=== PATIENT | female | born 1945 | race Caucasian/White ===

== ENCOUNTER 2016-08-09 19:49 | Inpatient (IN) | payer OTHER ==
[~2016-08-09] VITALS: Ht 177.8 cm; Wt 60.8 kg
[2016-08-09 20:01] VITALS: BP_SYST 107
[2016-08-09] MEDS ORDERED: NACL 0.9% 1,000 ML IV ONE (20:24)
[2016-08-09 20:52] LABS: BASOPHILS % (AUTO) 0.2 % (0.0-2.0); EOSINOPHILS % (AUTO) 0.1 % (0.0-4.0); HEMATOCRIT 24.2 % (36-48); HEMOGLOBIN 8.2 g/dL (12.0-16.0); LYMPHOCYTES # (AUTO) 0.4 K/uL (1.0-5.5); MEAN CORPUSCULAR HEMOGLOBIN 28 pg (27-31); MEAN CORPUSCULAR HGB CONC 34 % (32-36); MEAN CORPUSCULAR VOLUME 83 fL (79.0-98.0); MONOCYTES # (AUTO) 0.3 K/uL (0.0-1.0); NEUTROPHILS % (AUTO) 88.7 % (40.0-70.0); PLATELET COUNT (AUTO) 491 K/uL (130-430); RED BLOOD CELL COUNT(AUTO) 2.94 MIL/uL (4.2-6.2); RED CELL DISTRIBUTION WIDTH 16.8 % (9.0-15.0); WHITE BLOOD COUNT (AUTO) 6.7 K/uL (4.8-10.8)
[2016-08-09 21:03] LABS: CALCIUM 8.5 mg/dL (8.4-11.0); CREATININE 1.86 mg/dL (0.55-1.30); POTASSIUM 4.4 mmol/L (3.5-5.1)
[2016-08-09 21:18] LABS: THYROID STIMULATING HORMONE 0.58 uIu/mL (0.34-4.82); TOTAL BILIRUBIN 0.2 mg/dL (0.0-1.0); TOTAL PROTEIN, SERUM 6.5 g/dL (6.4-8.3)
[2016-08-10 00:03] LABS: BILIRUBIN,URINE 1+ (NEGATIVE); BLOOD, URINE 3+ (NEGATIVE); CLARITY/URINE CLOUDY (CLEAR); COLOR,URINE BROWN (YELLOW); GLUCOSE,URINE NEGATIVE (NEGATIVE); KETONES,URINE NEGATIVE (NEGATIVE); LEUKOCYTE ESTERASE ,URINE 3+ (NEGATIVE); NITRITE, URINE NEGATIVE (NEGATIVE); PH,URINE 6.5 (5.0-8.0); PROTEIN URINE 2+ (NEGATIVE)
[2016-08-10 00:08] LABS: BACTERIA,URINE MANY /HPF (None Seen); MUCUS,URINE None Seen /LPF (None Seen); RBC,URINE >100 /HPF (0-3); WBC,URINE 50-80 /HPF (0-3)
[2016-08-10] MEDS ORDERED: cefTRIAXone 1 GM IVPB PREMIX 50 ML IV ONE (02:30)
[2016-08-10 03:48] LABS: PROTHROMBIN TIME 10.9 SECS (9.5-12.5)
[2016-08-10 04:23] VITALS: BP_SYST 120
[2016-08-10 04:53] LABS: HEMATOCRIT 25.2 % (36-48); HEMOGLOBIN 8.3 g/dL (12.0-16.0)
[2016-08-10] MEDS: D5NS 1,000 ML IV SCH (05:25)
[2016-08-10] MEDS: PANTOPRAZOLE SODIUM 40 MG/VIAL (PROTONIX) IVP SCH ×2 (08:54→21:28)
[2016-08-10] MEDS: MORPHINE 4 MG/ML INJ. SYRINGE IVP PRN ×2 (08:55→15:23)
[2016-08-10] MEDS ORDERED: IBUP-1480 PO (09:40)
[2016-08-10] MEDS ORDERED: OXYC-133 PO (09:40)
[2016-08-10] MEDS ORDERED: PROC10TA PO (09:40)
[2016-08-10] MEDS ORDERED: [UNRECOGNIZED DRUG - OTHER] IV (09:44)
[2016-08-10] MEDS ORDERED: POLY17PO4 PO (09:55)
[2016-08-10 11:11] LABS: HEMATOCRIT 23.4 % (36-48); HEMOGLOBIN 7.5 g/dL (12.0-16.0)
[2016-08-10 12:00] VITALS: BP_SYST 114
[2016-08-10 12:09] LABS: CALCIUM 8.2 mg/dL (8.4-11.0); CREATININE 1.51 mg/dL (0.55-1.30); POTASSIUM 4.4 mmol/L (3.5-5.1)
[2016-08-10 12:13] LABS: ALBUMIN 1.8 g/dL (3.4-4.8); TOTAL BILIRUBIN 0.1 mg/dL (0.0-1.0); TOTAL PROTEIN, SERUM 5.7 g/dL (6.4-8.3)
[2016-08-10 12:15] LABS: BASOPHILS % (AUTO) 0.5 % (0.0-2.0); EOSINOPHILS % (AUTO) 0.5 % (0.0-4.0); HEMATOCRIT 22.6 % (36-48); HEMOGLOBIN 7.3 g/dL (12.0-16.0); LYMPHOCYTES # (AUTO) 0.5 K/uL (1.0-5.5); LYMPHOCYTES % (AUTO) 9.1 % (20.5-51.5); MEAN CORPUSCULAR HEMOGLOBIN 27 pg (27-31); MEAN CORPUSCULAR HGB CONC 32 % (32-36); MEAN CORPUSCULAR VOLUME 83 fL (79.0-98.0); MONOCYTES # (AUTO) 0.3 K/uL (0.0-1.0); MONOCYTES % (AUTO) 6.1 % (1.7-9.3); NEUTROPHILS # (AUTO) 4.3 K/uL (1.8-7.7); NEUTROPHILS % (AUTO) 83.8 % (40.0-70.0); PLATELET COUNT (AUTO) 472 K/uL (130-430); RED BLOOD CELL COUNT(AUTO) 2.72 MIL/uL (4.2-6.2); WHITE BLOOD COUNT (AUTO) 5.1 K/uL (4.8-10.8)
[2016-08-10] MEDS: PIPERACILLIN/TAZO 3.375/DEX-IS 50 ML IV SCH ×3 (12:39→23:54)
[2016-08-10 18:02] VITALS: BP_SYST 106
[2016-08-10] MEDS ORDERED: methylPREDNISolone SOD SUCC 40 MG/ML VIAL IVP ONE (18:15)
[2016-08-10] MEDS ORDERED: ACETAMINOPHEN 325 MG TABLET PO ONE (18:15)
[2016-08-10] MEDS ORDERED: FAMOTIDINE PF 20 MG/2 ML VIAL IVP ONE (18:15)
[2016-08-10] MEDS ORDERED: DIPHENHYDRAMINE INJ 50 MG/ML VIAL IVP ONE (18:15)
[2016-08-10] MEDS ORDERED: DIPHENHYDRAMINE INJ 50 MG/ML VIAL ONE (18:18)
[2016-08-10] MEDS ORDERED: ACETAMINOPHEN 325 MG TABLET ONE (18:18)
[2016-08-10] MEDS ORDERED: methylPREDNISolone SOD SUCC/PF 62.5 MG/ML VIAL ONE (18:19)
[2016-08-10] MEDS ORDERED: ACETAMINOPHEN 650 MG SUPP.RECT RC ONE ×2 (18:30→18:33)
[2016-08-10] MEDS: NACL 0.9% 1,000 ML IV SCH (19:48)
[2016-08-10 19:58] LABS: HEMATOCRIT 25.5 % (36-48); HEMOGLOBIN 8.6 g/dL (12.0-16.0)
[2016-08-10 20:00] VITALS: BP_SYST 101
[2016-08-11] VITALS (7 sets, daily range): BP systolic 82–118
[2016-08-11] MEDS ORDERED: NACL 0.9% 1,000 ML IV ONE (01:15)
[2016-08-11] MEDS ORDERED: IPRATROPIUM/ALBUTEROL SULFATE 3 ML AMPUL.NEB INH PRN (01:15)
[2016-08-11 03:05] LABS: BILIRUBIN,URINE NEGATIVE (NEGATIVE); BLOOD, URINE 3+ (NEGATIVE); CLARITY/URINE CLOUDY (CLEAR); GLUCOSE,URINE NEGATIVE (NEGATIVE); KETONES,URINE NEGATIVE (NEGATIVE); LEUKOCYTE ESTERASE ,URINE 3+ (NEGATIVE); NITRITE, URINE NEGATIVE (NEGATIVE); PROTEIN URINE 2+ (NEGATIVE); UROBILINOGEN,URINE 0.2 (0.2-1.0)
[2016-08-11 03:06] LABS: COLOR,URINE YELLOW (YELLOW)
[2016-08-11 03:08] LABS: BACTERIA,URINE MODERATE /HPF (None Seen); RBC,URINE >100 /HPF (0-3); WBC,URINE >100 /HPF (0-3)
[2016-08-11 03:09] LABS: MUCUS,URINE None Seen /LPF (None Seen)
[2016-08-11] MEDS: D5NS 1,000 ML IV SCH ×2 (03:14→18:58)
[2016-08-11] MEDS: PIPERACILLIN/TAZO 3.375/DEX-IS 50 ML IV SCH ×3 (05:22→18:58)
[2016-08-11] MEDS: PANTOPRAZOLE SODIUM 40 MG/VIAL (PROTONIX) IVP SCH ×2 (08:21→20:25)
[2016-08-11] MEDS: OXYCODONE/ACETAMINOPHEN *10*mg/325 mg TABLET PO PRN ×2 (08:21→23:25)
[2016-08-11 10:16] LABS: BASOPHILS % (AUTO) 0.3 % (0.0-2.0); EOSINOPHILS % (AUTO) 0.1 % (0.0-4.0); HEMATOCRIT 23.4 % (36-48); HEMOGLOBIN 7.7 g/dL (12.0-16.0); LYMPHOCYTES # (AUTO) 0.5 K/uL (1.0-5.5); LYMPHOCYTES % (AUTO) 10.5 % (20.5-51.5); MEAN CORPUSCULAR HEMOGLOBIN 28 pg (27-31); MEAN CORPUSCULAR HGB CONC 33 % (32-36); MEAN CORPUSCULAR VOLUME 86 fL (79.0-98.0); MONOCYTES # (AUTO) 0.3 K/uL (0.0-1.0); MONOCYTES % (AUTO) 6.9 % (1.7-9.3); NEUTROPHILS # (AUTO) 4.1 K/uL (1.8-7.7); NEUTROPHILS % (AUTO) 82.2 % (40.0-70.0); PLATELET COUNT (AUTO) 348 K/uL (130-430); RED BLOOD CELL COUNT(AUTO) 2.72 MIL/uL (4.2-6.2); RED CELL DISTRIBUTION WIDTH 16.6 % (9.0-15.0); WHITE BLOOD COUNT (AUTO) 4.9 K/uL (4.8-10.8)
[2016-08-11 10:22] LABS: CALCIUM 7.8 mg/dL (8.4-11.0); CREATININE 1.27 mg/dL (0.55-1.30)
[2016-08-11 10:27] LABS: ALBUMIN 1.6 g/dL (3.4-4.8); TOTAL BILIRUBIN 0.3 mg/dL (0.0-1.0); TOTAL PROTEIN, SERUM 5.3 g/dL (6.4-8.3)
[2016-08-11] MEDS ORDERED: ACETAMINOPHEN 325 MG TABLET PO ONE (12:00)
[2016-08-11] MEDS ORDERED: DIPHENHYDRAMINE INJ 50 MG/ML VIAL IVP ONE (12:00)
[2016-08-11] MEDS: MORPHINE 4 MG/ML INJ. SYRINGE IVP PRN (20:25)
[2016-08-12] VITALS (7 sets, daily range): BP systolic 110–132
[2016-08-12] MEDS: PIPERACILLIN/TAZO 3.375/DEX-IS 50 ML IV SCH ×2 (02:41→05:56)
[2016-08-12] MEDS: NACL 0.9% 1,000 ML IV SCH ×2 (05:56→06:02)
[2016-08-12] MEDS: PANTOPRAZOLE SODIUM 40 MG/VIAL (PROTONIX) IVP SCH ×2 (08:49→21:02)
[2016-08-12] MEDS: OXYCODONE/ACETAMINOPHEN *10*mg/325 mg TABLET PO PRN ×2 (08:49→21:04)
[2016-08-12] MEDS: D5NS 1,000 ML IV SCH ×2 (10:30→11:30)
[2016-08-12] MEDS ORDERED: metroNIDAZOLE 500 MG TABLET PO ONE (10:30)
[2016-08-12] MEDS: MORPHINE 4 MG/ML INJ. SYRINGE IVP PRN (10:38)
[2016-08-12 10:58] LABS: BASOPHILS % (AUTO) 0.4 % (0.0-2.0); EOSINOPHILS % (AUTO) 0.4 % (0.0-4.0); HEMATOCRIT 27.8 % (36-48); HEMOGLOBIN 9.3 g/dL (12.0-16.0); LYMPHOCYTES # (AUTO) 0.3 K/uL (1.0-5.5); LYMPHOCYTES % (AUTO) 6.6 % (20.5-51.5); MEAN CORPUSCULAR HEMOGLOBIN 29 pg (27-31); MEAN CORPUSCULAR HGB CONC 33 % (32-36); MEAN CORPUSCULAR VOLUME 86 fL (79.0-98.0); MONOCYTES # (AUTO) 0.2 K/uL (0.0-1.0); MONOCYTES % (AUTO) 4.1 % (1.7-9.3); NEUTROPHILS # (AUTO) 4.3 K/uL (1.8-7.7); NEUTROPHILS % (AUTO) 88.5 % (40.0-70.0); PLATELET COUNT (AUTO) 368 K/uL (130-430); RED BLOOD CELL COUNT(AUTO) 3.24 MIL/uL (4.2-6.2); WHITE BLOOD COUNT (AUTO) 4.8 K/uL (4.8-10.8)
[2016-08-12 11:03] LABS: CREATININE 1.22 mg/dL (0.55-1.30); POTASSIUM 3.7 mmol/L (3.5-5.1)
[2016-08-12 11:07] LABS: ALBUMIN 1.7 g/dL (3.4-4.8); TOTAL BILIRUBIN 0.3 mg/dL (0.0-1.0); TOTAL PROTEIN, SERUM 5.5 g/dL (6.4-8.3)
[2016-08-12] MEDS ORDERED: DIPHENOXYLATE HCL/ATROP SULF 2.5 MG TAB PO PRN (12:15)
[2016-08-12] MEDS ORDERED: VANCOMYCIN HCL 1 GM/NS PREMIX 250 ML IV ONE (12:15)
[2016-08-12] MEDS: metroNIDAZOLE 500 MG TABLET PO SCH ×2 (14:38→22:30)
[2016-08-13 03:49] VITALS: BP_SYST 122
[2016-08-13] MEDS: metroNIDAZOLE 500 MG TABLET PO SCH ×3 (06:04→21:19)
[2016-08-13] MEDS: OXYCODONE/ACETAMINOPHEN *10*mg/325 mg TABLET PO PRN ×2 (06:05→23:05)
[2016-08-13 08:20] VITALS: BP_SYST 143
[2016-08-13] MEDS: PANTOPRAZOLE SODIUM 40 MG/VIAL (PROTONIX) IVP SCH ×2 (09:05→21:19)
[2016-08-13] MEDS: MORPHINE 4 MG/ML INJ. SYRINGE IVP PRN ×2 (09:07→13:51)
[2016-08-13] MEDS ORDERED: METR500T PO (10:15)
[2016-08-13 12:22] VITALS: BP_SYST 132
[2016-08-13] MEDS: D5NS 1,000 ML IV SCH (13:51)
[2016-08-13 16:07] VITALS: BP_SYST 131
[2016-08-13 19:20] VITALS: BP_SYST 127
[2016-08-13 22:41] VITALS: BP_SYST 130
[2016-08-14 03:14] VITALS: BP_SYST 120
[2016-08-14] MEDS: metroNIDAZOLE 500 MG TABLET PO SCH ×2 (05:41→13:59)
[2016-08-14] MEDS: OXYCODONE/ACETAMINOPHEN *10*mg/325 mg TABLET PO PRN (05:43)
[2016-08-14] MEDS: D5NS 1,000 ML IV SCH (05:43)
[2016-08-14 08:54] VITALS: BP_SYST 134
[2016-08-14] MEDS: PANTOPRAZOLE SODIUM 40 MG/VIAL (PROTONIX) IVP SCH (08:55)
[2016-08-14] MEDS: MORPHINE 4 MG/ML INJ. SYRINGE IVP PRN (11:41)
[2016-08-14 12:25] VITALS: BP_SYST 130
[2016-08-14 14:00] VITALS: BP_SYST 130
[2016-08-14 14:40] VITALS: BP_SYST 130
== END 2016-08-14 15:30 | disposition home or self-care (01) | DRG 871 ==
LOC: SED 19:49 → STU 08-10 03:35 → SMU 08-12 18:19
PROVIDERS: ADMIT Internal Medicine Hospice and Palliative Medicine; ATTEND Internal Medicine Hospice and Palliative Medicine
PROC: 30233N1 Transfusion of Nonautologous Red Blood Cells into Peripheral Vein, Percutaneous Approach (ICD-10-PCS; principal; 2016-08-10)
DX: A41.9 Sepsis, unspecified organism (principal); E43 Unspecified severe protein-calorie malnutrition; D62 Acute posthemorrhagic anemia; N39.0 Urinary tract infection, site not specified; E87.1 Hypo-osmolality and hyponatremia; C78.00 Secondary malignant neoplasm of unspecified lung; Z68.1 Body mass index [BMI] 19.9 or less, adult; N13.30 Unspecified hydronephrosis; A04.7 Enterocolitis due to Clostridium difficile; N93.9 Abnormal uterine and vaginal bleeding, unspecified; C53.9 Malignant neoplasm of cervix uteri, unspecified; D64.81 Anemia due to antineoplastic chemotherapy; N19 Unspecified kidney failure; Z79.899 Other long term (current) drug therapy; Z22.322 Carrier or suspected carrier of Methicillin resistant Staphylococcus aureus; Z92.21 Personal history of antineoplastic chemotherapy; I95.9 Hypotension, unspecified
CPT/HCPCS: 36415; 71010; 80053; 81000-TC; 82272; 83605; 84443-TC; 84484; 85018-TC; 85025; 85610-TC; 85730-TC; 86886; 86900; 86901; 86920; 87040-TC; 87081; 87086; 93005; 96361; 96365; 99285; C9113; J0696; J1200; J2270; J2543; J2930; J3370; J3490; J7030; J7042; J7050; P9021